=== PATIENT | female | born 1960 | race Caucasian/White ===

== ENCOUNTER 2021-06-14 20:44 | Observation (INO) ==
[2021-06-14 21:08] LABS: Hematocrit 43.4 % (35.3-44.9); Hemoglobin 14.5 g/dL (11.5-15.4); Mean Corpuscular HGB Conc 33.4 g/dL (31.6-35.5); Mean Corpuscular Hemoglobin 29.5 pg (28.0-33.3); Mean Corpuscular Volume 88.2 fL (83.0-100.0); Mean Platelet Volume 10.1 fL (9.4-12.4); Platelet Count 307 K/mcL (140-400); Red Blood Count 4.92 M/mcL (3.82-4.97); Red Cell Distribution Width 12.9 % (11.5-14.5)
[2021-06-14 21:18] LABS: Prothrombin Time 10.9 Seconds (9.4-12.1)
[2021-06-14 21:33] LABS: BUN/Creatinine Ratio 18 (6-26); Blood Urea Nitrogen 15 mg/dL (8-23); Calcium 9.5 mg/dL (8.6-10.3); Carbon Dioxide 23 mEq/L (23-29); Chloride 104 mEq/L (98-107); Glucose 145 mg/dL (70-105); Osmolality,Calculated 289 (280-300); Potassium 3.7 mEq/L (3.5-5.1); Sodium 138 mEq/L (136-145); eGFR For African Americans > 60 (> 60); eGFR For Non-African Americans > 60 (> 60)
[2021-06-14 21:35] LABS: Troponin I < 0.03 ng/mL (< 0.04)
[2021-06-14] MEDS ORDERED: Isovue-370 500 ML BOTTLE IVP ONE (22:04)
[2021-06-14] MEDS ORDERED: *HR* Labetalol 20 MG/4 ML SYRINGE IVP ONE ×2 (22:48→23:59)
[2021-06-15] MEDS ORDERED: Aspirin 81 MG TAB.CHEW PO STA (00:38)
[2021-06-15] MEDS ORDERED: Melatonin 3 MG TABLET PO PRN (00:57)
[2021-06-15] MEDS ORDERED: Naloxone 0.4 MG/ML INJ IVP PRN (00:57)
[2021-06-15] MEDS ORDERED: Perflutren Lipid Microsphere 1.3 ML in 0.9 % Sodium Chloride 8.7 ML IVP PRN (01:01)
[2021-06-15] MEDS ORDERED: Gadolinium Contrast Agent (WT Based) IV PRN (01:01)
[2021-06-15] MEDS: *HR* Heparin 5,000 UNIT/ML VIAL SQ SCH ×2 (04:06→17:44)
[2021-06-15 09:36] LABS: Hemoglobin 13.5 g/dL (11.5-15.4); Mean Corpuscular HGB Conc 32.9 g/dL (31.6-35.5); Mean Corpuscular Hemoglobin 29.3 pg (28.0-33.3); Mean Corpuscular Volume 89.1 fL (83.0-100.0); Mean Platelet Volume 10.3 fL (9.4-12.4); Platelet Count 286 K/mcL (140-400); White Blood Count 8.1 K/mcL (4.3-11.1)
[2021-06-15 09:54] LABS: BUN/Creatinine Ratio 14 (6-26); Blood Urea Nitrogen 11 mg/dL (8-23); Calcium 9.2 mg/dL (8.6-10.3); Carbon Dioxide 25 mEq/L (23-29); Chloride 103 mEq/L (98-107); Glucose 209 mg/dL (70-105); Osmolality,Calculated 292 (280-300); Potassium 3.8 mEq/L (3.5-5.1); Sodium 138 mEq/L (136-145); eGFR For African Americans > 60 (> 60); eGFR For Non-African Americans > 60 (> 60)
[2021-06-15] MEDS ORDERED: GADOBUTROL 30 MMOL/30 ML VIAL IVP ONE (11:10)
[2021-06-15 11:39] LABS: Estimated Average Glucose 171 mg/dl; Hemoglobin A1C 7.6 %
[2021-06-15 14:32] LABS: Bilirubin,Urine Negative (Negative); Blood,Urine Negative (Negative); Clarity,Urine Clear (Clear); Color,Urine Light-Yellow (Yellow); Glucose,Urine (UA) 500 mg/dL (Normal); Ketones,Urine Negative (Negative); Leukocyte Esterase,Urine Trace (Negative); Mucus,Urine Few per lpf (None-Few); Nitrite,Urine Negative (Negative); Protein,Urine 30 mg/dL (Neg-Trace); RBC,Urine 0-3 per hpf (0-3); Specific Gravity,Urine > 1.030 (1.010-1.025); Squamous Epithelial Cell,Urine Few per hpf (None-Few); Urobilinogen,Urine Normal (Normal); WBC,Urine 0-3 per hpf (0-3)
[2021-06-15] MEDS ORDERED: Acetaminophen 325 MG TABLET PO ONE (20:43)
[2021-06-16] MEDS ORDERED: NIFEdipine Immed Rel 10 MG CAPSULE PO ONE (03:47)
[2021-06-16] MEDS ORDERED: Acetaminophen IV 1,000 MG/100 ML BAG IVPB ONE (03:51)
[2021-06-16] MEDS: *HR* Heparin 5,000 UNIT/ML VIAL SQ SCH (04:47)
[2021-06-16] MEDS ORDERED: Aspirin 81 MG TAB.CHEW PO SCH (09:00)
[2021-06-16] MEDS ORDERED: Aspirin Enteric Coated 81 MG Tablet PO ONE (10:30)
[2021-06-16 11:24] VITALS: BP 163/82; PULSE 61; TEMP 97.9; O2SAT 93
[2021-06-17] MEDS ORDERED: Aspirin Enteric Coated 325 MG Tablet PO SCH (09:00)
== END 2021-06-16 12:50 | disposition home or self-care (01) ==
LOC: EMEROOARM 20:44 → 2ANU 20:44 → SUATTDRO 06-15 00:48 → 2ANU 06-15 01:29
PROVIDERS: ADMIT Student in an Organized Health Care Education/Training Program; ATTEND Student in an Organized Health Care Education/Training Program